=== PATIENT | female | born 1995 | race Caucasian/White ===

== ENCOUNTER 2019-08-12 17:33 | Inpatient (IN) | payer OTHER ==
--- NOTE | 2019-08-12 18:41 | CONSULT ---
Past Medical History, Laborist - Admission Chief Complaint: Irregular ctx. Due date today. Mild pain. No bleeding. Membranes intact. History of Present Illness: Uneventful gestation. GBS neg. History Source: Patient Limitations to Obtaining History: No Limitations - Past Medical History TURNTABLE ENGINEER: Denies/None Cardio/Vascular: Denies/None Pulmonary: Denies/None Gastrointestinal: Denies/None Hepatobiliary: Denies/None Renal/: Denies/None Reproductive: Denies/None ...: 1 ...Para: 0 ...Term: 0 ...: 0 ...Spon : 0 ...Induced : 0 ...LMP: 11/05/18 ... Weeks Gestation by Dates: 40.0 ...EDC by Dates: 08/12/19 ...EDC by Sono: 08/12/19 Heme/Onc: Denies/None Infectious Disease: Denies/None Psych: Denies/None Musculoskeletal: Denies/None Rheumatology: Denies/None ENT: Denies/None Endocrine: Denies/None Dermatology: Denies/None - Past Surgical History Past Surgical History: Yes: Appendectomy, Hernia Repair, Tonsillectomy - Smoking History Smoking history: Never smoked - Social History Usual Living Arrangement: With Spouse History of Recent Travel: No Family Medical History Family History: Unable to Obtain Review of Systems - Review of Systems Constitutional: reports: No Symptoms Eyes: reports: No Symptoms HENT: reports: No Symptoms Neck: reports: No Symptoms Cardiovascular: reports: No Symptoms Respiratory: reports: No Symptoms Gastrointestinal: reports: No Symptoms Genitourinary: reports: No Symptoms Breasts: reports: No Symptoms Reported Musculoskeletal: reports: No Symptoms Integumentary: reports: No Symptoms Neurological: reports: No Symptoms Endocrine: reports: No Symptoms Hematology/Lymphatic: reports: No Symptoms Psychiatric: reports: No Symptoms Physical Exam - Maternity Vital Signs: Vital Signs Temperature 98.0 F 08/12/19 18:17 Pulse Rate 84 08/12/19 18:17 Respiratory Rate 18 08/12/19 18:17 Blood Pressure 138/78 08/12/19 18:17 O2 Sat by Pulse Oximetry (%) Constitutional: Yes: Well Nourished, Calm Eyes: Yes: WNL HENT: Yes: WNL Neck: Yes: WNL Cardiovascular: Yes: WNL - Abdominal Exam/OB Fundal Height: 40 Presentation: Vertex Contractions: Yes Regularity: Irregular Intensity: Mild Monitor Mode: External Heart Rate Location: Midline Category: I Accelerations: Uniform Decelerations: None - Vaginal Exam/OB Vaginal Bleediing: No Dilatation (cm): 1-2 Effacement (%): 30 Amniotic Membrane Status: Intact Presentation: Vertex/Position Station: -1 - Physical Exam Musculoskeletal: Yes: WNL Extremities: Yes: WNL Edema: LUE: Trace, RUE: Trace, LLE: Trace, RLE: Trace Integumentary: Yes: WNL ...Motor Strength: WNL Psychiatric: Yes: WNL Problem List - Problems (1) Term Code(s): Z34.90 - ENCNTR FOR SUPRVSN OF NORMAL , UNSP, UNSP TRIMESTER (2) Irregular uterine contractions Code(s): O62.2 - OTHER UTERINE INERTIA Assessment/Plan A: Term gestation. Irregular ctx. Suspecting early labor P: Observe, monitor, oral hydration. OOB. Recheck in 2-3 hours? Poss. therapeutic rest.
[2019-08-12] MEDS ORDERED: BUTORPHANOL TARTRATE 1 MG/ML VIAL IVPB ONE (20:21)
[2019-08-12] MEDS ORDERED: PROMETHAZINE HCL 25 MG/1 ML VIAL IVPUSH ONE (20:21)
[2019-08-12 21:35] LABS: BASO % 0.1 % (0-2.0); EOS % 0.3 % (0-4.5); HEMATOCRIT 38.7 % (32.4-45.2); HEMOGLOBIN 13.3 GM/dL (10.7-15.3); LYMPH % 15.7 % (8-40); MCH 30.8 pg (25.7-33.7); MCHC 34.5 g/dl (32.0-36.0); MEAN CELL VOLUME 89.5 fl (80-96); MEAN PLT VOLUME 10.5 fl (7.5-11.1); MONO % 6.8 % (3.8-10.2); NEUT % 77.1 % (42.8-82.8); PLATELET COUNT 186 K/MM3 (134-434); RBC 4.32 M/mm3 (3.60-5.2); RDW 12.7 % (11.6-15.6); WHITE BLOOD COUNT 13.1 K/mm3 (4.0-10.0)
[2019-08-12 21:50] LABS: INR 0.9 (0.83-1.09); PROTHROMBIN TIME (PATIENT) 10.6 SEC (9.7-13.0)
[2019-08-12 21:53] LABS: ACTIVATED PTT 27.6 SECONDS (25.2-36.5)
[2019-08-12 21:58] LABS: BLOOD UREA NITROGEN 11.1 mg/dL (7-18); CREATININE 0.6 mg/dL (0.55-1.3)
[2019-08-12 21:59] LABS: CALCIUM 8.8 mg/dL (8.5-10.1); POTASSIUM 3.9 mmol/L (3.5-5.1)
--- NOTE | 2019-08-12 22:20 | HP ---
Past Medical History - Admission Chief Complaint: Labor pain History of Present Illness: 24 yo @ 38.6 weeks gestation weeks gestation, EDC 08/19/19 admitted for labor pain. History Source: Patient Limitations to Obtaining History: No Limitations - Past Medical History ...: 2 ...Para: 1 ...Term: 0 ...: 0 ...Spon : 0 ...Induced : 0 ...LMP: 11/05/18 ... Weeks Gestation by Dates: 40.0 ...EDC by Dates: 08/12/19 ...EDC by Sono: 08/12/19 - Past Surgical History Past Surgical History: Yes: Appendectomy, Hernia Repair, Tonsillectomy Hx Myomectomy: No Hx Transabdominal Cerclage: No - Smoking History Smoking history: Never smoked - Social History History of Recent Travel: No Home Medications - Allergies Allergies/Adverse Reactions: Allergies Allergy/AdvReac Type Severity Reaction Status Date / Time amoxicillin Allergy Intermediate Rash Verified 08/12/19 18:31 - Home Medications Home Medications: Ambulatory Orders Calcium Carbonate [Calcium] 500 mg PO DAILY 08/12/19 Pnv No.95/Ferrous Fum/Folic AC [ Vitamin Tablet] 1 each PO DAILY Family Medical History Family History: Unremarkable Review of Systems - Review of Systems Constitutional: reports: No Symptoms Eyes: reports: No Symptoms HENT: reports: No Symptoms Neck: reports: No Symptoms Cardiovascular: reports: No Symptoms Respiratory: reports: No Symptoms Gastrointestinal: reports: No Symptoms Genitourinary: reports: Pain Breasts: reports: No Symptoms Reported Musculoskeletal: reports: No Symptoms Integumentary: reports: No Symptoms Neurological: reports: No Symptoms Endocrine: reports: No Symptoms Hematology/Lymphatic: reports: No Symptoms Psychiatric: reports: No Symptoms Pain Intensity: 7 Physical Exam - Maternity Vital Signs: Vital Signs Temperature 98.0 F 08/12/19 18:17 Pulse Rate 76 08/12/19 20:00 Respiratory Rate 20 08/12/19 20:00 Blood Pressure 123/73 08/12/19 20:00 O2 Sat by Pulse Oximetry (%) Constitutional: Yes: Well Nourished Eyes: Yes: Conjunctiva Clear HENT: Yes: Atraumatic Neck: Yes: Supple Cardiovascular: Yes: Regular Rate and Rhythm Lungs: Clear to auscultation Breast(s): Yes: WNL - Abdominal Exam/OB Number of Fetuses: Single Presentation: Vertex - Physical Exam ...Motor Strength: WNL Psychiatric: Yes: Alert, Oriented - Labs Lab Results: CBC, BMP 08/12/19 21:00 08/12/19 21:00 Problem List - Problems (1) Pain during labor Code(s): O99.89 - OTH DISEASES AND CONDITIONS COMPL PREG/CHLDBRTH; R52 - PAIN, UNSPECIFIED Assessment/Plan Active labor Admit to L&D Analgesia as needed Anticipate
[2019-08-12] MEDS ORDERED: IBUPROFEN 600 MG TABLET (FP) PO PRN (23:01)
[2019-08-12] MEDS ORDERED: BISACODYL 10 MG SUPP.RECT RC PRN (23:01)
[2019-08-12] MEDS ORDERED: BENZOCAINE 28 GM HEMORRHOIDAL OINTMENT TP PRN (23:01)
[2019-08-12] MEDS ORDERED: METHYLERGONOVINE MALEATE 0.2 MG/1 ML AMP IM PRN (23:01)
[2019-08-12] MEDS ORDERED: ACETAMINOPHEN 325 MG TABLET (FP) PO PRN (23:01)
[2019-08-12] MEDS ORDERED: BENZOCAINE 20% 57 GM BOTTLE TP PRN (23:01)
[2019-08-12] MEDS ORDERED: WITCH HAZEL 50% (TUCKS) 40 PAD/JAR PAD TP PRN (23:01)
--- NOTE | 2019-08-12 23:04 | PN ---
Delivery - Delivery Vaginal Delivery: Spontaneous Episiotomy/Laceration: Midline EBL (cc): 300 Remarks - Remarks Remarks: Normal spontaneous vaginal delivery of a live girl over midline episiotomy. Nose / Oropharynx suctioned @ perineum. Cord clamped and cut. Baby handed to nurse. Placenta expelled spontaneously intact. Episiotomy repaired with 2.0 Chromic.
[2019-08-12] MEDS ORDERED: OXYTOCIN 20 UNITS in 0.9% NS 20 UNIT/1,000 ML INFUS.BAG IV SCH (23:15)
[2019-08-13 01:43] VITALS: BMI 34.7
[2019-08-13] MEDS ORDERED: DEXTROSE 5%-LACTATED RINGERS 1,000 ML IV SCH (04:00)
--- NOTE | 2019-08-13 08:13 | PN ---
Ante-Partal Exam - Subjective Subjective: Pt with mild contractions no rom 40+ week Vital Signs: Vital Signs Temperature 98.2 F 08/13/19 06:00 Pulse Rate 78 08/13/19 06:00 Respiratory Rate 18 08/13/19 06:00 Blood Pressure 127/69 08/13/19 06:00 O2 Sat by Pulse Oximetry (%) Bleeding: No Headache: No Visual changes: No Right upper quadrant pain: No - Contractions Contractions: No - Exam during Labor Category: I Monitor Accelerations: Present Monitor Decelerations: None Exam: Vaginal (cervidil placed) Dilatation (cm): 2 Effacement (%): 60 Amniotic Membrane Status: Intact Presentation: Vertex Station: -2 - Intrapartum Hemorrhage Risk Risk Score: 0 Risk Level: Low Risk - Assessment/Plan Assessment/Plan: IUP at 40+ week Cervidil placed Cat 1 Plan cervidil x12 hours
[2019-08-13] MEDS ORDERED: DINOPROSTONE 10 MG VAGINAL SUPPOSITORY VG ONE (08:16)
[2019-08-13 08:37] LABS: BASO % 0.5 % (0-2.0); EOS % 0.9 % (0-4.5); HEMATOCRIT 34.6 % (32.4-45.2); HEMOGLOBIN 12.2 GM/dL (10.7-15.3); LYMPH % 21.6 % (8-40); MCH 31.4 pg (25.7-33.7); MCHC 35.2 g/dl (32.0-36.0); MEAN CELL VOLUME 89.3 fl (80-96); MEAN PLT VOLUME 10.1 fl (7.5-11.1); MONO % 8.6 % (3.8-10.2); NEUT % 68.4 % (42.8-82.8); PLATELET COUNT 175 K/MM3 (134-434); RBC 3.88 M/mm3 (3.60-5.2); RDW 12.8 % (11.6-15.6); WHITE BLOOD COUNT 9.4 K/mm3 (4.0-10.0)
[2019-08-13] MEDS ORDERED: CITRIC ACID/SODIUM CITRATE 30 ML UNIT-DOSE CUP PO ONE (09:00)
[2019-08-13] MEDS ORDERED: ELECTROLYTE-148 SOLN 1,000 ML IV SCH ×2 (09:00→09:30)
[2019-08-13] MEDS ORDERED: PRENATAL VITAMINS W/ FOLIC ACID TABLET (FP) PO SCH (10:00)
[2019-08-13] MEDS ORDERED: ACETAMINOPHEN 325 MG TABLET (FP) PO ONE (10:00)
[2019-08-13] MEDS ORDERED: ACETAMINOPHEN 325 MG TABLET (FP) ONE (10:14)
[2019-08-13] MEDS: ELECTROLYTE-148 SOLN 1,000 ML IV SCH ×2 (12:00→19:30)
[2019-08-13] MEDS ORDERED: BUTORPHANOL TARTRATE 1 MG/ML VIAL ONE ×2 (18:16)
[2019-08-13] MEDS ORDERED: PROMETHAZINE HCL 25 MG/1 ML VIAL ONE (18:17)
--- NOTE | 2019-08-13 18:46 | PN ---
Ante-Partal Exam - Subjective Subjective: Pt wth contractions Vital Signs: Vital Signs Temperature 97.9 F 08/13/19 18:33 Pulse Rate 69 08/13/19 18:33 Respiratory Rate 20 08/13/19 18:33 Blood Pressure 132/65 08/13/19 18:33 O2 Sat by Pulse Oximetry (%) Bleeding: No Headache: No Visual changes: No Right upper quadrant pain: No - Contractions Contractions: Yes Regularity: Regular Monitor Mode: External - Exam during Labor Variability: Moderate Category: I Monitor Accelerations: Present Monitor Decelerations: None Exam: Vaginal Dilatation (cm): 3 Effacement (%): 80 Amniotic Membrane Status: Intact Presentation: Vertex Station: -1 - Intrapartum Hemorrhage Risk Risk Score: 0 Risk Level: Low Risk - Assessment/Plan Assessment/Plan: post dates induction 40 week cervidil removed Cat 1 Plan anticipate vaginal delivery
[2019-08-13] MEDS: FERROUS SO4 325 MG TABLET (FP) PO SCH (18:50)
[2019-08-13] MEDS ORDERED: OXYTOCIN 30 UNITS in 0.9% NS 30 UNIT/500 ML INFUS.BAG IVPB SCH (19:00)
[2019-08-13] MEDS ORDERED: OXYTOCIN 30 UNITS in 0.9% NS 30 UNIT/500 ML INFUS.BAG IVPB ONE (20:03)
[2019-08-13] MEDS ORDERED: FENTANYL/BUPIVACAINE/NS/PF - PCEA - 50 ML DISP.SYRIN EP ONE (20:57)
[2019-08-13] MEDS ORDERED: SENNOSIDES/DOCUSATE COMBO (SENNA PLUS) TABLET (UD) PO PRN (22:00)
[2019-08-13] MEDS ORDERED: NALOXONE HCL 0.4 MG/ML VIAL IVPUSH PRN (22:28)
[2019-08-13] MEDS ORDERED: FENTANYL/BUPIVACAINE/NS/PF - PCEA - 50 ML DISP.SYRIN EP SCH (22:30)
[2019-08-14] MEDS: FERROUS SO4 325 MG TABLET (FP) PO SCH ×3 (00:13→22:47)
[2019-08-14 00:19] LABS: RETICULOCYTES 2.12 % (0.5-1.5)
[2019-08-14 00:24] LABS: URINE APPEARANCE CLEAR; URINE BILIRUBIN NEGATIVE (NEGATIVE); URINE COLOR YELLOW; URINE GLUCOSE (UA) NEGATIVE (NEGATIVE); URINE KETONE TRACE (NEGATIVE); URINE LEUK ESTERASE NEGATIVE (NEGATIVE); URINE NITRITE NEGATIVE (NEGATIVE); URINE PROTEIN NEGATIVE (NEGATIVE); URINE UROBILINOGEN 0.2 mg/dL (0.2-1.0)
[2019-08-14] MEDS ORDERED: FENTANYL/BUPIVACAINE/NS/PF - PCEA - 50 ML DISP.SYRIN EP ONE ×2 (00:38→03:58)
[2019-08-14 00:47] LABS: URIC ACID 4.8 mg/dL (2.6-7.2)
[2019-08-14] MEDS ORDERED: ACETAMINOPHEN INJECTION 100 ML IVPB ONE (02:57)
[2019-08-14] MEDS: ELECTROLYTE-148 SOLN 1,000 ML IV SCH (03:00)
[2019-08-14] MEDS ORDERED: LIDOCAINE HCL 1% PRESERVATIVE FREE - 30ML VIAL ONE (03:17)
[2019-08-14] MEDS ORDERED: OXYTOCIN 20 UNITS in 0.9% NS 20 UNIT/1,000 ML INFUS.BAG IV ONE ×2 (03:17→08:02)
[2019-08-14] MEDS ORDERED: CLINDAMYCIN PHOSPHATE 600 MG/4 ML VIAL ONE (03:50)
[2019-08-14] MEDS ORDERED: CLINDAMYCIN 900 MG PREMIX IVPB 900 MG/50 ML BAG IVPB ONE (03:56)
[2019-08-14] MEDS ORDERED: ACETAMINOPHEN 1000 MG/100 ML VIAL (NON FORMULARY) IVPB STA (03:56)
--- NOTE | 2019-08-14 04:00 | PN ---
Ante-Partal Exam - Subjective Subjective: Pt with c/o of fever temp 100.1 Vital Signs: Vital Signs Temperature 99.7 F H 08/14/19 02:45 Pulse Rate 90 08/14/19 03:30 Respiratory Rate 18 08/14/19 03:30 Blood Pressure 118/65 08/14/19 03:30 O2 Sat by Pulse Oximetry (%) 100 08/14/19 03:30 - Contractions Contractions: No Regularity: Regular Monitor Mode: External - Exam during Labor Heart Rate: 180 Variability: Moderate Category: II Monitor Decelerations: None Exam: Vaginal Dilatation (cm): 9 Effacement (%): 100 Nitrazine Test: Negative Amniotic Fluid: Clear Presentation: Vertex Station: +1 - Intrapartum Hemorrhage Risk Risk Score: 0 Risk Level: Low Risk - Assessment/Plan Assessment/Plan: Chorio Cat 2 elevated tep FHR 180
[2019-08-14] MEDS ORDERED: IBUPROFEN 800 MG/8 ML IJ IVPB PRN (04:13)
[2019-08-14] MEDS ORDERED: METHYLERGONOVINE MALEATE 0.2 MG/1 ML AMP IM PRN (04:13)
--- NOTE | 2019-08-14 04:13 | PN ---
Ante-Partal Exam - Subjective Subjective: Pt with elevated temp an tachycardia at 180-190 Pitocin turned off after tachycardia Vital Signs: Vital Signs Temperature 99.7 F H 08/14/19 02:45 Pulse Rate 90 08/14/19 03:30 Respiratory Rate 18 08/14/19 03:30 Blood Pressure 118/65 08/14/19 03:30 O2 Sat by Pulse Oximetry (%) 100 08/14/19 03:30 Bleeding: No Headache: No Visual changes: No Right upper quadrant pain: No - Contractions Contractions: Yes Regularity: Regular Intensity: Mild/Mod Monitor Mode: External - Exam during Labor Variability: Moderate Category: II Monitor Accelerations: Absent Monitor Decelerations: None - Intrapartum Hemorrhage Risk Medium Risk Factors: Chorioamniomitis Risk Score: 1 Risk Level: Medium Risk - Assessment/Plan Assessment/Plan: tachycardia cat 2 Chorioamnionitis Plan case discussed with mother and agrees with CS Notify Peds and
[2019-08-14] MEDS ORDERED: OXYTOCIN 20 UNITS in 0.9% NS 20 UNIT/1,000 ML INFUS.BAG IV SCH (04:15)
[2019-08-14] MEDS ORDERED: LIDO 2%/EPI 1:200000 PRESRVFRE (20 ML SDVIAL) ONE (04:46)
[2019-08-14] MEDS ORDERED: PROPOFOL 20 ML ONE (05:05)
[2019-08-14] MEDS ORDERED: SUCCINYLCHOLINE CHLORIDE 200 MG/10 ML SYRINGE ONE (05:06)
[2019-08-14] MEDS ORDERED: DEXAMETHASONE SOD PHOSPHATE 4 MG/1 ML VIAL ONE ×2 (05:07→05:26)
[2019-08-14] MEDS ORDERED: OXYTOCIN 10 UNITS/ML VIAL ONE (05:26)
[2019-08-14] MEDS ORDERED: KETOROLAC TROMETHAMINE 30 MG/1 ML VIAL ONE (05:26)
[2019-08-14] MEDS ORDERED: GENTAMICIN SO4 80 MG/2 ML VIAL ONE (05:29)
--- NOTE | 2019-08-14 06:23 | OP ---
Operative Note - Note: Operative Date: 08/14/19 Pre-Operative Diagnosis: Nonreassuring tracing. tachycardia. iup at 40 week. obesity. CHorioamnionitis Operation: Primary low transverse Section Findings: Live male Post-Operative Diagnosis: Same as Pre-op Surgeon: Concetta Dunn Meter/Relay Craftsman: Jeremiah Arevalo Anesthesia: Epidural Estimated Blood Loss (mls): 600 Operative Report Dictated: Yes
[2019-08-14] MEDS ORDERED: ONDANSETRON 4 MG/2 ML VIAL IVPUSH PRN (07:02)
--- NOTE | 2019-08-14 08:15 | PN ---
Progress Note (short form) - Note Progress Note: 24 F s/p primary C/S for Nonreassuring tracing, tachycardia. Pregancy c/b obesity, chorioamnionitis. Vital Signs Temperature 98.8 F 08/14/19 08:08 Pulse Rate 80 08/14/19 08:08 Respiratory Rate 18 08/14/19 08:08 Blood Pressure 118/67 08/14/19 08:08 O2 Sat by Pulse Oximetry (%) 96 08/14/19 07:55 Lying in bed, NAD RRR CTAB URRUTIA -No complications associated with spinal -Call with questions
--- NOTE | 2019-08-14 08:39 | OP ---
DATE OF OPERATION: 08/14/2019 PREOPERATIVE DIAGNOSIS: Nonreassuring tracing, tachycardia, intrauterine at 40 weeks, obesity, and chorioamnionitis. OPERATION: Low-transverse primary section. POSTOPERATIVE DIAGNOSIS: Nonreassuring tracing, tachycardia, intrauterine at 40 weeks, obesity, chorioamnionitis, and live male . SURGEON: Lisbet Dunn MD FERTILIZER MIXER: JESSICA Welch ANESTHESIA: Epidural. ESTIMATED BLOOD LOSS: 600 mL. DESCRIPTION OF PROCEDURE: The patient was taken to the operating room, placed in the supine lithotomy position, and prepped and draped in the usual sterile fashion. A time-out was performed in accordance with hospital regulation. A Pfannenstiel skin incision was made with the scalpel. Cautery was then used to go through the layers of the abdominal wall to the level of the fascia. The fascia was cut in the midline, and cautery was then used to open the fascia in a smiling fashion. Hu was then used to bluntly and sharply dissect the rectus muscle and fascia. The muscle was splint in the midline. The peritoneal cavity was then entered. A bladder retractor was then placed. A scalpel was then used to make a low transverse uterine incision. The incision was carried upwards using bandage scissors. A live male infant was delivered in OP position. Nose and mouth suctioning was performed. The shoulders were delivered without difficulty. The cord was clamped and cut. Cord blood obtained. The infant was sent to the quarry supervisor open pit, Dr. Grimes. The placenta was manually extracted from the uterus. The uterus was exteriorized and cleaned with clean lap pads. The uterine incision was then closed using 0 Biosyn suture, the first layer continuous interlocking and the second layer imbricating the first layer. Hemostasis was achieved. The uterus was interiorized. The abdominal cavity was cleaned with clean lap pads. The peritoneum was then closed using 0 Biosyn suture in a continuous stitch. The fascia was then closed using 0 Vicryl suture in 2 parts. The subcutaneous was closed using interrupted Biosyn suture. The fascia was then closed using 3-0 Vicryl in subcuticular fashion. The wound was washed and dressed. The patient tolerated the procedure well. Estimated blood loss was 600 mL. LISBET DUNN M.D. [id number]
[2019-08-15] MEDS: ACETAMINOPHEN 325 MG TABLET (FP) PO PRN ×4 (03:16→21:49)
[2019-08-15] MEDS ORDERED: oxyCODONE HCL 5 MG TABLET PO PRN (04:13)
[2019-08-15] MEDS ORDERED: BISACODYL 10 MG SUPP.RECT RC PRN (04:13)
--- NOTE | 2019-08-15 06:33 | PN ---
Post Progress Note - Subjective Subjective: Pt seen/evaluated and doing well. Some incisional pain otherwise no complaints. Afebrile. VB small and decreasing. Tolerating clear diet, voided this a.m. Type of Delivery: Primary C/S Vital Signs: Vital Signs Temperature 97.4 F L 08/15/19 02:00 Pulse Rate 77 08/15/19 02:00 Respiratory Rate 20 08/15/19 04:00 Blood Pressure 115/66 08/15/19 02:00 O2 Sat by Pulse Oximetry (%) 96 08/15/19 03:14 Uterus: Yes: Fundus Firm Incision: Yes: Dressing dry and intact Abdomen/GI: Yes: Abdomen soft, Tolerating PO Lochia: Yes: Rubra Lochia, amount: Small Extremities: Yes: Calves non-tender Perineum: Yes: Intact Activity: Ambulating - Labs Labs: CBC WBC 9.4 K/mm3 (4.0-10.0) 08/13/19 08:11 RBC 3.88 M/mm3 (3.60-5.2) 08/13/19 08:11 Hgb 12.2 GM/dL (10.7-15.3) 08/13/19 08:11 Hct 34.6 % (32.4-45.2) 08/13/19 08:11 MCV 89.3 fl (80-96) 08/13/19 08:11 MCH 31.4 pg (25.7-33.7) 08/13/19 08:11 MCHC 35.2 g/dl (32.0-36.0) 08/13/19 08:11 RDW 12.8 % (11.6-15.6) 08/13/19 08:11 Plt Count 195 K/MM3 (134-434) 08/14/19 00:05 MPV 10.1 fl (7.5-11.1) 08/13/19 08:11 Absolute Neuts (auto) 6.5 K/mm3 (1.5-8.0) 08/13/19 08:11 Neutrophils % 68.4 % (42.8-82.8) 08/13/19 08:11 Lymphocytes % 21.6 % (8-40) D 08/13/19 08:11 Monocytes % 8.6 % (3.8-10.2) 08/13/19 08:11 Eosinophils % 0.9 % (0-4.5) D 08/13/19 08:11 Basophils % 0.5 % (0-2.0) D 08/13/19 08:11 Nucleated RBC % 0 % (0-0) 08/13/19 08:11 Retic Count 2.12 % (0.5-1.5) H 08/14/19 00:05 Haptoglobin 73 mg/dL (34-200) 08/14/19 00:05 Problem List - Problems (1) delivery delivered Code(s): O82 - ENCOUNTER FOR DELIVERY WITHOUT INDICATION Assessment/Plan Pt doing well AFVSS had some elevated BPS throughout labor, have been normal since delivery and labs WNL OOB advance diet as tolerated routine post care
[2019-08-15 07:51] LABS: BASO % 0.2 % (0-2.0); EOS % 0.3 % (0-4.5); HEMATOCRIT 27.9 % (32.4-45.2); MCH 31.7 pg (25.7-33.7); MCHC 35.7 g/dl (32.0-36.0); MEAN CELL VOLUME 88.8 fl (80-96); MEAN PLT VOLUME 10.1 fl (7.5-11.1); MONO % 7.7 % (3.8-10.2); NEUT % 79.8 % (42.8-82.8); PLATELET COUNT 166 K/MM3 (134-434); RBC 3.14 M/mm3 (3.60-5.2); RDW 12.6 % (11.6-15.6); WHITE BLOOD COUNT 10.1 K/mm3 (4.0-10.0)
[2019-08-15] MEDS ORDERED: DIPHTH,PERTUSS(ACELL),TET 0.5 ML DISP.SYRIN IM ONE ×2 (08:45→10:00)
[2019-08-15] MEDS ORDERED: FLU VACC QS2019-20(6MOS UP)/PF 60 MCG/0.5 ML SYRINGE IM ONE (08:45)
[2019-08-15] MEDS: ENOXAPARIN NA (PORCINE) 40 MG/0.4 ML DISP.SYRIN SQ SCH (09:38)
[2019-08-15] MEDS: FERROUS SO4 325 MG TABLET (FP) PO SCH ×2 (09:38→21:49)
[2019-08-15] MEDS ORDERED: FLU VACCINE QUAD 60 MCG/0.5 ML (MDV 19-20) IM ONE (10:00)
[2019-08-15] MEDS: oxyCODONE HCL 5 MG TABLET PO PRN (10:08)
[2019-08-15] MEDS: SIMETHICONE 80 MG TAB.CHEW (FP) PO PRN ×2 (15:12→21:49)
[2019-08-15] MEDS: IBUPROFEN 600 MG TABLET (FP) PO PRN ×2 (15:13→21:49)
--- NOTE | 2019-08-15 17:57 | PATH ---
Surgical Pathology Report Patient Name: RUTH APPIAH Med. Rec. #: [id number] /Age/Gender: 1995 (Age: 24) / F Account: [id number] Location: [facility] OBS/COOLING PIPE INSPECTOR Taken: 08/14/2019 Received: 08/14/2019 Reported: 08/15/2019 Physicians: Concetta Dunn M.D. Specimen(s) Received PLACENTA Clinical History , 40.2 weeks, tachycardia Nonreassuring FH R. Tracing Final Diagnosis PLACENTA, SECTION: 608 G THIRD TRIMESTER PLACENTA WITH TRIVASCULAR UMBILICAL CORD AND UNREMARKABLE PLACENTAL MEMBRANES. Electronically Signed Laurel Rowe M.D. Gross Description The specimen is received fresh labeled placenta and is a 608 gram, 21 x 16 x 1.5 cm. placenta with attached membranes and umbilical cord. The attached membranes are clear and translucent and insert marginally. The umbilical cord measures 16 cm. in length and averages 1.5 cm. in diameter. The cord inserts centrally, 9 cm. to the nearest margin. No true knots or strictures are identified. Cut surface of the umbilical cord reveals 3 vessels. The surface is mack-blue with minimal fibrin deposition and appropriate caliber vessels. The maternal surface is red-brown with focal defects. Sectioning reveals red-brown, spongy parenchyma. No lesions are identified. Labor Relations Teacher sections are submitted in three cassettes as follows: 1- membrane rolls and umbilical cord; 2-3- full thickness sections of placenta. MLSZ/08/14/2019 sanml/08/14/2019
[2019-08-16] MEDS: SIMETHICONE 80 MG TAB.CHEW (FP) PO PRN ×3 (04:55→21:40)
[2019-08-16] MEDS: oxyCODONE HCL 5 MG TABLET PO PRN ×3 (04:55→21:42)
[2019-08-16] MEDS: ACETAMINOPHEN 325 MG TABLET (FP) PO PRN ×2 (04:56→14:59)
[2019-08-16] MEDS: IBUPROFEN 600 MG TABLET (FP) PO PRN ×3 (08:43→21:35)
[2019-08-16] MEDS: FERROUS SO4 325 MG TABLET (FP) PO SCH ×2 (10:47→21:35)
[2019-08-16] MEDS: ENOXAPARIN NA (PORCINE) 40 MG/0.4 ML DISP.SYRIN SQ SCH (10:48)
[2019-08-17] MEDS: SIMETHICONE 80 MG TAB.CHEW (FP) PO PRN ×2 (03:09→07:54)
[2019-08-17] MEDS: IBUPROFEN 600 MG TABLET (FP) PO PRN ×2 (03:09→07:55)
[2019-08-17] MEDS: oxyCODONE HCL 5 MG TABLET PO PRN ×2 (03:09→07:54)
--- NOTE | 2019-08-17 07:19 | DS ---
Physical Exam-ROLL TENDER Vital Signs: Vital Signs Temperature 98.5 F 08/16/19 22:00 Pulse Rate 92 H 08/16/19 22:00 Respiratory Rate 18 08/16/19 22:00 Blood Pressure 126/72 08/16/19 22:00 O2 Sat by Pulse Oximetry (%) 96 08/15/19 03:14 Constitutional: Yes: Well Nourished, No Distress Gastrointestinal: Yes: WNL, Soft Labs: CBC, BMP 08/15/19 07:00 08/12/19 21:00 Delivery - Delivery Vaginal Delivery: Spontaneous Type of Anesthesia: Epidural Episiotomy/Laceration: None EBL (cc): 600 Delivery, Single - Stages of Labor Date 1st Stage Initiatied: 08/13/19 Time 1st Stage Initiated: 18:30 Date of Delivery: 08/14/19 Time of Delivery: 05:14 Time Placenta Delivered: 05:15 - Condition of Infant Post Partum Nurse/Social Insurance Adviser Present: Yes Name: Antonella Grimes Gender: Male Weight: 8 lb 5 oz Position: OT Total Hours ROM (Hrs/Mins): 0515 - 1 Minute Total Score: 9 5 Minutes Total Score: 9 - Feeding Plan Initial Plan: Exclusive throughout hospitalization Discharge Summary Problems reviewed: Yes Reason For Visit: LABOR Current Active Problems delivery delivered (Acute) Irregular uterine contractions (Acute) Pain during labor (Acute) Term (Acute) Procedures: Principal: Primary Section Condition: Good - Instructions Diet, Activity, Other Instructions: Physical activity Resume your normal everyday activity as tolerated no heavy lifting or exercise until seen by your surgeon. You may walk unlimited malgorzata of and climb stairs. You may resume driving the car when you feel safe and comfortable behind the wheel. No sexual activity as instructed. Wound care If you have a bandage, leave it on, and keep dry for 48-72 hours. After that time discard the outer bandage. If they are tapes on the skin under the out of bandage leave them in place. They will peel off in the next 7 to 10 days. Do Not Peel them off. You may shower the day after surgery. If there are tapes present on the skin, you may shower over them. Diet There are no dietary restrictions. Eat healthy, high-fiber foods. Drink 6 to 8 glasses of liquid each day. This will assist in keeping your bowels are regular. Pain management You may take Tylenol or acetaminophen or Ibuprofen (for example, Motrin, Advil etc.) from my pain prescription medication is ordered should be taken as prescribed for moderate to severe pain. Call MD for any of the following: Severe pain not relieved by medication Fever of 101 or higher Excessive bleeding or drainage on dressing Inability to urinate Disposition: HOME - Home Medications Comprehensive Discharge Medication List: Ambulatory Orders Calcium Carbonate [Calcium] 500 mg PO DAILY 08/12/19 Pnv No.95/Ferrous Fum/Folic AC [ Vitamin Tablet] 1 each PO DAILY Ibuprofen [Motrin -] 600 mg PO TID #21 tablet 08/17/19
[2019-08-17 09:29] VITALS: BP 112/66; PULSE 82; TEMP 98.1
[2019-08-17 09:50] LABS: BASO % 0.3 % (0-2.0); EOS % 2.1 % (0-4.5); HEMATOCRIT 30.1 % (32.4-45.2); HEMOGLOBIN 10.5 GM/dL (10.7-15.3); LYMPH % 14.7 % (8-40); MCHC 34.8 g/dl (32.0-36.0); MEAN CELL VOLUME 89.1 fl (80-96); MEAN PLT VOLUME 8.7 fl (7.5-11.1); MONO % 9.8 % (3.8-10.2); NEUT % 73.1 % (42.8-82.8); PLATELET COUNT 219 K/MM3 (134-434); RBC 3.38 M/mm3 (3.60-5.2); RDW 12.7 % (11.6-15.6); WHITE BLOOD COUNT 5.1 K/mm3 (4.0-10.0)
[2019-08-17] MEDS: ENOXAPARIN NA (PORCINE) 40 MG/0.4 ML DISP.SYRIN SQ SCH (09:54)
[2019-08-17] MEDS: FERROUS SO4 325 MG TABLET (FP) PO SCH (09:54)
--- NOTE | 2019-08-20 12:18 | CONSULT ---
Past Medical History, Laborist - Past Medical History ...: 2 ...Para: 1 ...Term: 0 ...: 0 ...Spon : 0 ...Induced : 0 ...Multiple Gestation: 0 ...LMP: 11/05/18 ... Weeks Gestation by Dates: 40.0 ...EDC by Dates: 08/12/19 ...EDC by Sono: 08/12/19 - Past Surgical History Past Surgical History: Yes: Appendectomy, Hernia Repair, Tonsillectomy - Smoking History Smoking history: Never smoked Have you smoked in the past 12 months: No - Alcohol/Substance Use Hx Alcohol Use: No - Social History History of Recent Travel: No Physical Exam - Maternity Vital Signs: Vital Signs Temperature 98.1 F 08/17/19 09:00 Pulse Rate 82 08/17/19 09:00 Respiratory Rate 18 08/17/19 09:00 Blood Pressure 112/66 08/17/19 09:00 O2 Sat by Pulse Oximetry (%) 96 08/15/19 03:14 - Labs Lab Results: CBC, BMP 08/17/19 09:40 08/12/19 21:00 Problem List - Problems (1) Term Code(s): Z34.90 - ENCNTR FOR SUPRVSN OF NORMAL , UNSP, UNSP TRIMESTER (2) Irregular uterine contractions Code(s): O62.2 - OTHER UTERINE INERTIA
== END 2019-08-17 11:35 | disposition home or self-care (01) | DRG 786 ==
LOC: JDEL 17:33 → JLDR 18:40 → J3W 08-14 08:17
PROVIDERS: ADMIT Obstetrics & Gynecology; ATTEND Obstetrics & Gynecology
PROC: 10D00Z1 Extraction of Products of Conception, Low, Open Approach (ICD-10-PCS; principal; 2019-08-14)
DX: O48.0 Post-term pregnancy (principal); O41.1230 Chorioamnionitis, third trimester, not applicable or unspecified; O76 Abnormality in fetal heart rate and rhythm complicating labor and delivery; Z3A.40 40 weeks gestation of pregnancy; Z37.0 Single live birth
CPT/HCPCS: 36415; 36600; 80048; 81003; 82803; 82977; 83010; 84450; 84460; 84550; 85025; 85032; 85044; 85461; 85610; 85730; 86593; 86850; 86870; 86900; 86901; 86902; 86999; 90686; 90715; J0131

== ENCOUNTER 2022-05-30 05:26 | Day surgery (SDC) | payer BC ==
[2022-05-26 10:54] VITALS: BMI 34.7
[2022-05-30 14:04] VITALS: RESP 20
[2022-05-30] MEDS ORDERED: MIDAZOLAM HCL 2 MG/2 ML SINGLE DOSE VIAL ONE (14:47)
[2022-05-30 16:11] VITALS: TEMP 98.2
[2022-05-30 16:12] VITALS: BP 111/80; PULSE 80
== END 2022-05-30 16:05 | disposition home or self-care (01) ==
LOC: JASU-SURG 05:26
PROVIDERS: ATTEND Urology
PROC: 0TF3XZZ Fragmentation in Right Kidney Pelvis, External Approach (ICD-10-PCS; principal; 2022-05-30 16:00)
DX: N20.0 Calculus of kidney (principal)
CPT/HCPCS: 81025

== ENCOUNTER 2022-08-23 04:46 | Day surgery (SDC) | payer BC ==
[2022-08-23 08:13] VITALS: BMI 34.7
[2022-08-23 08:30] VITALS: TEMP 97.7
[2022-08-23 11:11] VITALS: BP 122/63; PULSE 60; RESP 18
== END 2022-08-23 11:11 | disposition home or self-care (01) ==
LOC: JASU-ENDO 04:46
PROVIDERS: ATTEND Internal Medicine Gastroenterology
PROC: 0DB78ZX Excision of Stomach, Pylorus, Via Natural or Artificial Opening Endoscopic, Diagnostic (ICD-10-PCS; principal; 2022-08-23 08:45)
DX: K29.70 Gastritis, unspecified, without bleeding (principal); B96.81 Helicobacter pylori [H. pylori] as the cause of diseases classified elsewhere; K21.9 Gastro-esophageal reflux disease without esophagitis
CPT/HCPCS: 81025; 88305-TC; 88342-TC

== ENCOUNTER 2022-10-10 11:02 | Emergency (ER) | payer BC ==
[2022-10-10 11:17] VITALS: BP 154/89; PULSE 68; RESP 18; TEMP 98.1; BMI 31.9
== END 2022-10-10 15:16 | disposition home or self-care (01) ==
LOC: JER 11:02
DX: K21.00 Gastro-esophageal reflux disease with esophagitis, without bleeding (principal)
CPT/HCPCS: 0241U-QW; 70360-TC-FY; 71046-TC-FY; 93005; 93010; 99285-25

== ENCOUNTER 2023-04-04 03:44 | Day surgery (SDC) | payer BC ==
[2023-03-30 14:21] VITALS: BMI 30.7
[2023-04-04 09:24] VITALS: RESP 20; TEMP 97.8
[2023-04-04] MEDS ORDERED: GLYCOPYRROLATE 0.2 MG/1 ML VIAL ONE (11:30)
[2023-04-04] MEDS ORDERED: MIDAZOLAM HCL 2 MG/2 ML SINGLE DOSE VIAL ONE ×2 (11:31→11:46)
[2023-04-04] MEDS ORDERED: PROPOFOL 20 ML ONE (11:31)
[2023-04-04 13:14] VITALS: BP 130/86; PULSE 60
== END 2023-04-04 13:32 | disposition home or self-care (01) ==
LOC: JASU-SURG 03:44
PROVIDERS: ATTEND Urology
PROC: 0TF3XZZ Fragmentation in Right Kidney Pelvis, External Approach (ICD-10-PCS; principal; 2023-04-04 11:30)
DX: N20.0 Calculus of kidney (principal)
CPT/HCPCS: 81025

== ENCOUNTER 2023-05-19 05:32 | Day surgery (SDC) | payer BC ==
[2023-05-17 14:03] VITALS: BMI 30.7
[2023-05-19] MEDS ORDERED: DEXAMETHASONE SOD PHOSPHATE 10 MG/1 ML VIAL ONE (07:35)
[2023-05-19] MEDS ORDERED: BUPIVACAINE HCL/PF 0.75% 10 ML VIAL ONE (07:35)
[2023-05-19] MEDS ORDERED: LIDOCAINE HCL/PF 1% SDV 5ML VIAL ONE (07:35)
[2023-05-19] MEDS ORDERED: LIDOCAINE HCL/PF 2% SDV 5ML VIAL ONE (07:35)
[2023-05-19 10:59] VITALS: RESP 20
[2023-05-19] MEDS ORDERED: DEXAMETHASONE SOD PHOSPHATE 10 MG/1 ML VIAL IVPUSH ONE (11:42)
[2023-05-19] MEDS ORDERED: IOHEXOL 180 MG/1 ML ML IJ ONE (11:42)
[2023-05-19 12:51] VITALS: BP 120/70; PULSE 60; TEMP 97
[2023-05-19] MEDS ORDERED: ACETAMINOPHEN 500 MG TABLET (FP) PO PRN (14:54)
== END 2023-05-19 12:30 | disposition home or self-care (01) ==
LOC: JASU-SURG 05:32
PROVIDERS: ATTEND Pain Medicine Pain Medicine
PROC: 3E0R3BZ Introduction of Anesthetic Agent into Spinal Canal, Percutaneous Approach (ICD-10-PCS; 2023-05-19)
PROC: 3E0R33Z Introduction of Anti-inflammatory into Spinal Canal, Percutaneous Approach (ICD-10-PCS; principal; 2023-05-19 12:30)
DX: M54.16 Radiculopathy, lumbar region (principal)
CPT/HCPCS: 76000-TC-FY; 81025; J1100

== ENCOUNTER 2023-08-08 03:59 | Day surgery (SDC) | payer BC ==
[2023-08-04 15:44] VITALS: BMI 29.0
[2023-08-08] MEDS ORDERED: DEXAMETHASONE SOD PHOSPHATE 10 MG/1 ML VIAL ONE (07:24)
[2023-08-08] MEDS ORDERED: LIDOCAINE HCL/PF 1% SDV 5ML VIAL ONE (07:24)
[2023-08-08] MEDS ORDERED: DEXAMETHASONE SOD PHOSPHATE 10 MG/1 ML VIAL IM ONE (11:40)
[2023-08-08] MEDS ORDERED: LIDOCAINE HCL 1% PRESERVATIVE FREE - 30ML VIAL IJ ONE (11:40)
[2023-08-08] MEDS ORDERED: IOHEXOL 180 MG/1 ML ML IJ ONE (11:40)
[2023-08-08 12:09] VITALS: RESP 20
[2023-08-08] MEDS ORDERED: ACETAMINOPHEN 500 MG TABLET (FP) PO PRN (12:41)
[2023-08-08 14:04] VITALS: BP 120/70; PULSE 68; TEMP 98
== END 2023-08-08 12:15 | disposition home or self-care (01) ==
LOC: JASU-SURG 03:59
PROVIDERS: ATTEND Pain Medicine Pain Medicine
PROC: 3E0R3BZ Introduction of Anesthetic Agent into Spinal Canal, Percutaneous Approach (ICD-10-PCS; 2023-08-08)
PROC: 3E0R33Z Introduction of Anti-inflammatory into Spinal Canal, Percutaneous Approach (ICD-10-PCS; principal; 2023-08-08 11:15)
DX: M54.16 Radiculopathy, lumbar region (principal)
CPT/HCPCS: 76000-TC-FY; 81025; J1100

== ENCOUNTER 2023-09-19 04:29 | Day surgery (SDC) | payer BC ==
[2023-09-19] MEDS ORDERED: BUPIVACAINE HCL/PF 0.5% (5MG/ML) 10 ML VIAL ONE (07:18)
[2023-09-19] MEDS ORDERED: LIDOCAINE HCL/PF 1% SDV 5ML VIAL ONE (07:18)
[2023-09-19 07:31] VITALS: RESP 20; BMI 29.0
[2023-09-19] MEDS ORDERED: LIDOCAINE HCL 1% PRESERVATIVE FREE - 30ML VIAL IJ ONE (09:22)
[2023-09-19] MEDS ORDERED: TRIAMCINOLONE ACET 40MG/1ML VIAL IM ONE (09:25)
[2023-09-19] MEDS ORDERED: IOHEXOL 180 MG/1 ML ML IJ ONE (09:25)
[2023-09-19] MEDS ORDERED: BUPIVACAINE HCL/PF 0.5% (5MG/ML) 10 ML VIAL IJ ONE (09:25)
[2023-09-19 10:40] VITALS: BP 125/77; PULSE 63; TEMP 97.7
== END 2023-09-19 09:50 | disposition home or self-care (01) ==
LOC: JASU-SURG 04:29
PROVIDERS: ATTEND Pain Medicine Pain Medicine
PROC: 3E0U3BZ Introduction of Anesthetic Agent into Joints, Percutaneous Approach (ICD-10-PCS; 2023-09-19)
PROC: 3E0U33Z Introduction of Anti-inflammatory into Joints, Percutaneous Approach (ICD-10-PCS; principal; 2023-09-19 09:15)
DX: M53.3 Sacrococcygeal disorders, not elsewhere classified (principal)
CPT/HCPCS: 76000-TC-FY; 81025

== ENCOUNTER 2024-04-16 16:35 | Emergency (ER) | payer BC ==
[2024-04-16 16:42] VITALS: BP 126/78; PULSE 73; RESP 20; TEMP 98.2; BMI 30.7
[2024-04-16 18:04] LABS: BASO % 0.4 % (0-2.0); EOS % 0.7 % (0-4.5); HEMATOCRIT 39.6 % (32.4-45.2); HEMOGLOBIN 13.7 GM/dL (10.7-15.3); LYMPH % 28.7 % (8-40); MCH 30.2 pg (25.7-33.7); MCHC 34.7 g/dl (32.0-36.0); MEAN PLT VOLUME 8.4 fl (7.5-11.1); MONO % 8.4 % (3.8-10.2); NEUT % 61.8 % (42.8-82.8); PLATELET COUNT 218 10^3/uL (134-434); RBC 4.55 M/mm3 (3.60-5.2); RDW 12.9 % (11.6-15.6); WHITE BLOOD COUNT 7.3 K/mm3 (4.0-10.0)
[2024-04-16 18:22] LABS: EPI CELLS 35 /uL (0-25.1); HYALINE CASTS 1 /uL (0-3.1); PH,URINE 5.5 (5.0-8.0); URINE APPEARANCE CLEAR; URINE BACTERIA 1032 /uL (0-1359); URINE BILIRUBIN NEGATIVE (NEGATIVE); URINE COLOR YELLOW; URINE GLUCOSE (UA) NEGATIVE (NEGATIVE); URINE KETONE 1+ (NEGATIVE); URINE LEUK ESTERASE TRACE (NEGATIVE); URINE NITRITE NEGATIVE (NEGATIVE); URINE PROTEIN NEGATIVE (NEGATIVE); URINE RBC 21 /uL (0-23.9); URINE WBC 72 /uL (0-25.8)
[2024-04-16 18:22] LABS: POTASSIUM 3.8 mmol/L (3.5-5.1)
[2024-04-16 18:25] LABS: CALCIUM 9.3 mg/dL (8.5-10.1)
[2024-04-16 18:26] LABS: ALBUMIN 4.4 g/dl (3.4-5.0)
[2024-04-16 18:30] LABS: BILIRUBIN,TOTAL 0.8 mg/dL (0.2-1); TOT PROT 7.2 g/dl (6.4-8.2)
[2024-04-16 18:36] LABS: CREATININE 0.9 mg/dL (0.55-1.3)
[2024-04-16 18:47] LABS: HCG,QUALITATIVE URINE Negative
== END 2024-04-16 20:08 | disposition left against medical advice (07) ==
LOC: JER 16:35
DX: R10.33 Periumbilical pain (principal)
CPT/HCPCS: 36415; 74177-TC; 80053; 81003; 83690; 84703; 85025; 87086; 99285-25; Q9967

== ENCOUNTER 2025-08-18 06:30 | Day surgery (SDC) | payer BC ==
[2025-08-13 12:31] VITALS: BMI 25.3
[2025-08-18 15:27] VITALS: RESP 18
[2025-08-18] MEDS ORDERED: PROPOFOL 20 ML ONE (16:16)
[2025-08-18] MEDS ORDERED: MIDAZOLAM HCL 2 MG/2 ML SINGLE DOSE VIAL ONE (16:16)
[2025-08-18] MEDS ORDERED: ONDANSETRON 4 MG/2 ML VIAL ONE (16:28)
[2025-08-18] MEDS ORDERED: DEXAMETHASONE SOD PHOSPHATE 4 MG/1 ML VIAL ONE (16:28)
[2025-08-18] MEDS ORDERED: KETOROLAC TROMETHAMINE 30 MG/1 ML VIAL ONE (16:35)
[2025-08-18 16:53] VITALS: BP 116/60; PULSE 70; TEMP 97.7
== END 2025-08-18 17:49 | disposition home or self-care (01) ==
LOC: JASU-SURG 06:30
PROVIDERS: ATTEND Urology
PROC: 0TF4XZZ Fragmentation in Left Kidney Pelvis, External Approach (ICD-10-PCS; principal; 2025-08-18 16:45)
DX: N20.0 Calculus of kidney (principal)
CPT/HCPCS: 81025